=== PATIENT | female | born 1990 | race African-American/Black ===

== ENCOUNTER 2021-06-09 10:42 | Emergency (ER) | payer BC ==
[~2021-06-09] VITALS: Ht 160 cm; Wt 71.5 kg
[2021-06-09 11:15] VITALS: BP 132/76
[2021-06-09] MEDS ORDERED: LIDOCAINE 2% Multi-Dose 20 ML VIAL. IJ ONE (13:00)
--- NOTE | 2021-06-09 13:37 | ED.ADGEN ---
Past Medical History Past Surgical History: Other Additional Past Surgical Histo: LEFT MCL General Adult EDM: Chief Complaint: FINGER INJURY HPI: HPI: Patient is a 30 year old AA female who presents to the emergency department with complaints of swelling and pain in the distal end of her left middle finger. Patient states his symptoms began a couple days ago, she went to urgent care yesterday and was prescribed Keflex 3 times a day. Patient states she has been taking the Keflex as prescribed and some leftover naproxen from a previous visit. Patient states she is almost out of the naproxen. She denies any fever, body aches, numbness, tingling, or decreased sensation. Patient states that her finger feels full. She denies any drainage or bleeding from the site. She currently rates pain a 10 out of 10 on the pain scale, she denies any alleviating factors. Pain is worse if the area is touched. Review of Systems: Review of Systems: Complete ROS is negative unless otherwise noted in the HPI. Current Medications: Current Medications Medications (Trade) Dose Ordered Sig/Benny Start Time Stop Time Status Last Admin Dose Admin Lidocaine HCl (Lidocaine 2% 20ml Vial) 20 ml 1X ONCE 06/09/21 13:00 06/09/21 13:03 DC 06/09/21 13:02 20 ML Naproxen (Naprosyn) 500 mg STK-MED ONCE 06/09/21 13:53 06/09/21 13:53 DC Allergies: Allergies: Allergies Coded Allergies Type Severity Reaction Last Updated Verified No Known Drug Allergies 06/09/21 No Physical Exam: PE: See above Constitutional: Well developed, well nourished, no acute distress, non-toxic appearance. [] HENT: Normocephalic, atraumatic, bilateral external ears normal, nose normal. [] Eyes: PERRLA, EOMI, conjunctiva normal, no discharge. [] Neck: Normal range of motion, no stridor. [] Cardiovascular:Heart rate regular rhythm Lungs & Thorax: Respirations even and unlabored, no retractions, no respiratory distress Skin: Warm, dry; erythema and warmth to the medial distal left middle finger concerning for felon. Extremities: Left middle finger, no bony tenderness or deformity, no cyanosis, ROM intact, 1+ edema, sensation intact Neurologic: Alert and oriented X 3, no focal deficits noted. [] Psychologic: Affect normal, judgement normal, mood normal. [] Current Patient Data: Vital Signs: Vital Signs Date Time Temp Pulse Resp B/P (MAP) Pulse Ox O2 Delivery O2 Flow Rate FiO2 06/09/21 11:15 98.1 63 18 132/76 (94) 99 Room Air 98.1 EKG: EKG: [] Heart Score: C/O Chest Pain: No Radiology/Procedures: Radiology/Procedures: Indication: felon Procedure: The patient was positioned appropriately. Local anesthesia was 2% lidocaine. An incision was then made over the apex of the lesion and moderate amount of bloody pus was expressed. A nonstick dressing, Kerlix, and Coban was then applied to the site by myself. The patient tolerated the procedure well, minimal blood loss. Complications: none. Course & Med Decision Making: Course & Med Decision Making Pertinent Labs and Imaging studies reviewed. (See chart for details) 30-year-old female presented to emergency department with complaints of left middle finger pain and swelling physical exam is concerning for elizabeth, Dr. Viveros also evaluated the patient was in agreement with this assessment. Incision and drainage of the affected site as documented above. Patient was encouraged to continue taking the Keflex as prescribed. Recommended warm Epson salt soaks. Prescription for naproxen sent to the patient's pharmacy as requested. Follow- up with primary care doctor return to the ER in 48 hours for wound recheck, sooner if worsening signs or symptoms of infection such as fever, increased pain, or increased erythema. Patient verbalized an understanding of home care, medications, follow-up, and return to ED instructions and was in agreement with the plan of care. [] Dragon Disclaimer: Dragsteven Disclaimer: This electronic medical record was generated, in whole or in part, using a voice recognition dictation system. Departure Departure Impression: Primary Impression: Felon of finger of left hand Disposition: 01 HOME / SELF CARE / HOMELESS Condition: STABLE Patient Instructions: Paronychia, [id number] Additional Instructions: Continue taking the keflex as prescribed. Fill prescription(s) and use as directed. Soak the affected area in epsom salt soaks 3-4x/day and as needed for comfort. You may take tylenol or ibuprofen as needed for pain. Wound recheck in 48 hours. Follow up with your primary care doctor for wound recheck, return to the ER if your symptoms worsen or you develop a fever. Scripts Naproxen (NAPROXEN) 500 Mg Tablet 1 TAB PO BID PRN for PAIN for 10 Days, #20 TAB 0 Refills Prov: EDDIE GONZALEZ APRN 06/09/21 EDDIE GONZALEZ APRN Jun 09, 2021 13:37
[2021-06-09] MEDS ORDERED: NAPR-514 PO (13:46)
[2021-06-09] MEDS ORDERED: NAPROXEN 500 MG TABLET ONE (13:53)
== END 2021-06-09 13:56 | disposition home or self-care (01) ==
LOC: ER 10:42
DX: L03.012 Cellulitis of left finger (principal)
CPT/HCPCS: 26011; 99284

== ENCOUNTER 2021-06-12 13:45 | Emergency (ER) | payer BC ==
[~2021-06-12] VITALS: Ht 160 cm; Wt 69.5 kg
[~2021-06-12 13:45] MED LIST: NAPR-514 PO
[2021-06-12 13:51] VITALS: BP 158/88
[2021-06-12] MEDS ORDERED: MORPHINE SULFATE 2 MG/ML INJ. IVP ONE (14:15)
[2021-06-12] MEDS ORDERED: VANCOMYCIN PER PHARMACY MC ONE (14:15)
[2021-06-12] MEDS ORDERED: IV NORMAL SALINE 1000ML BAG 1,000 ML IV ONE ×2 (14:15)
[2021-06-12] MEDS ORDERED: PIPERACILLIN/TAZOBACTAM 4.5 GM in IV NORMAL SALINE 100ML 100 ML IV ONE (14:15)
[2021-06-12] MEDS ORDERED: VANCOMYCIN 1.75 GM in IV NORMAL SALINE 500ML BAG 500 ML IV ONE (14:30)
[2021-06-12] MEDS ORDERED: PIPERACILLIN/TAZOBACTAM 4.5 GM in IV DEXTROSE 5% 100ML 100 ML IV ONE (14:30)
--- NOTE | 2021-06-12 14:46 | RAD ---
XR FINGER(S)_LEFT 2+VIEWS_RT DATE: 06/12/2021 2:08 PM INDICATION: middle finger abscess COMPARISON: None. FINDINGS: Bones: There is no evidence of acute fracture or dislocation. No osseous erosions. Joints: The joint spaces are normal. Miscellaneous: None. IMPRESSION: No osseous erosions. Electronically signed by: Blaise Haskins MD (06/12/2021 2:44 PM) [id number]
[2021-06-12 15:00] LABS: BASO # 0.2 x10^3/uL (0.0-0.2); BASO % 3 % (0-3); EOS # 0.3 x10^3/uL (0.0-0.7); EOS % 5 % (0-3); HEMATOCRIT 41.2 % (36.0-47.0); HEMOGLOBIN 13.6 g/dL (12.0-15.5); LYMPH # 2.4 x10^3/uL (1.0-4.8); LYMPH % 38 % (24-48); MEAN CORPUSCULAR HEMOGLOBIN 31 pg (25-35); MEAN CORPUSCULAR HGB CONC 33 g/dL (31-37); MEAN CORPUSCULAR VOLUME 93 fL (79-100); MONO # 0.4 x10^3/uL (0.0-1.1); MONO % 7 % (0-9); NEUT # 3.1 x10^3/uL (1.8-7.7); NEUT % 48 % (31-73); PLATELET COUNT 330 x10^3/uL (140-400); RED BLOOD COUNT 4.43 x10^6/uL (3.50-5.40); RED CELL DISTRIBUTION WIDTH 13.7 % (11.5-14.5); WHITE BLOOD COUNT 6.4 x10^3/uL (4.0-11.0)
[2021-06-12 15:04] LABS: CALCIUM 8.9 mg/dL (8.5-10.1); CREATININE 0.9 mg/dL (0.6-1.0); GFR 87.8
[2021-06-12 15:13] LABS: ALBUMIN 4.1 g/dL (3.4-5.0); ALBUMIN/GLOBULIN RATIO 1.1 (1.0-1.7); TOTAL BILIRUBIN 0.1 mg/dL (0.2-1.0)
--- NOTE | 2021-06-12 16:59 | PHYS DOC ---
Past Medical History Past Surgical History: No Surgical History Additional Past Surgical Histo: LEFT MCL (CLARISA HINSON PEANUT SEPARATOR) Smoking Status: Never Smoker Alcohol Use: None (CLARISA HINSON APRN) General Adult EDM: Chief Complaint: FINGER INJURY HPI: HPI: Patient is a 30 year old right-handed female presented to the ED today complaining of left middle finger infection that began 10 days ago. Patient states she was seen at urgent care on June 04, 2021, was started on cephalexin which she states she took for 5 days. States the finger did not improve. She was seen in the ED 3 days ago and the finger was drained. She states she still has some drainage coming from it and feels its not improving. Patient denies any fever. (CLARISA HINSON APRN) Review of Systems: Review of Systems: Constitutional: Denies fever or chills. [] Musculoskeletal: Denies back pain or joint pain. [] Integument: Reports left middle finger infection Neurologic: Denies headache, focal weakness or sensory changes. [] Psychiatric: Denies depression or anxiety. [] (CLARISA HINSON PEANUT SEPARATOR) Heart Score: C/O Chest Pain: N/A Risk Factors: Risk Factors: DM, Current or recent (<one month) smoker, HTN, HLP, family history of CAD, obesity. Risk Scores: Score 0 - 3: 2.5% MACE over next 6 weeks - Discharge Home Score 4 - 6: 20.3% MACE over next 6 weeks - Admit for Clinical Observation Score 7 - 10: 72.7% MACE over next 6 weeks - Early Invasive Strategies (CLARISA HINSON PEANUT SEPARATOR) Current Medications: Current Medications Medications (Trade) Dose Ordered Sig/[facility] Start Time Stop Time Status Last Admin Dose Admin Morphine Sulfate (Morphine Sulfate) 2 mg 1X ONCE 06/12/21 14:15 06/12/21 14:16 DC 06/12/21 16:13 2 MG Piperacillin Sod/ Tazobactam Sod 4.5 gm/Dextrose 100 ml @ 200 mls/hr 1X ONCE 06/12/21 14:30 06/12/21 14:59 DC 06/12/21 14:30 200 MLS/HR Piperacillin Sod/ Tazobactam Sod 4.5 gm/Sodium Chloride 100 ml @ 200 mls/hr 1X ONCE 06/12/21 14:15 2/23/22 14:19 DC Sodium Chloride 1,000 ml @ 1,000 mls/hr 1X ONCE 06/12/21 14:15 06/12/21 15:14 DC Vancomycin HCl (Vanco Per Pharmacy) 1 each 1X ONCE 06/12/21 14:15 06/12/21 14:16 UNV Vancomycin HCl 1.75 gm/Sodium Chloride 500 ml @ 250 mls/hr 1X ONCE 06/12/21 14:30 06/12/21 16:29 DC 06/12/21 15:31 250 MLS/HR (CLARISA HINSON APRN) Allergies: Allergies: Allergies Coded Allergies Type Severity Reaction Last Updated Verified No Known Drug Allergies 06/12/21 No (CLARISA HINSON APRN) Physical Exam: PE: Constitutional: Well developed, well nourished, no acute distress, non-toxic appearance. [] [] Skin: Left middle finger distal end with small amount of soft tissue swelling consistent with a paronychia, there is an opening on the paronychia from an I&D that was done 3 days ago with drainage which patient expressed from the finger. There is artificial nail which I requested patient to remove when she gets home. Range of motion is intact including flexion and extension of the finger in all the joints. Sensation is intact to the finger. +2 left radial pulse. Cap refill less than 2 seconds to left fingers Back: No tenderness, no CVA tenderness. [] Extremities: No tenderness, no cyanosis, no clubbing, ROM intact, no edema. [] Neurologic: Alert and oriented X 3, normal motor function, normal sensory function, no focal deficits noted. [] Psychologic: Affect normal, judgement normal, mood normal. [] (CLARISA HINSON APRN) Current Patient Data: Labs: Laboratory Tests Test 06/12/21 14:40 06/12/21 15:00 White Blood Count 6.4 x10^3/uL (4.0-11.0) Red Blood Count 4.43 x10^6/uL (3.50-5.40) Hemoglobin 13.6 g/dL (12.0-15.5) Hematocrit 41.2 % (36.0-47.0) Mean Corpuscular Volume 93 fL (79-100) Mean Corpuscular Hemoglobin 31 pg (25-35) Mean Corpuscular Hemoglobin Concent 33 g/dL (31-37) Red Cell Distribution Width 13.7 % (11.5-14.5) Platelet Count 330 x10^3/uL (140-400) Neutrophils (%) (Auto) 48 % (31-73) Lymphocytes (%) (Auto) 38 % (24-48) Monocytes (%) (Auto) 7 % (0-9) Eosinophils (%) (Auto) 5 % (0-3) H Basophils (%) (Auto) 3 % (0-3) Neutrophils # (Auto) 3.1 x10^3/uL (1.8-7.7) Lymphocytes # (Auto) 2.4 x10^3/uL (1.0-4.8) Monocytes # (Auto) 0.4 x10^3/uL (0.0-1.1) Eosinophils # (Auto) 0.3 x10^3/uL (0.0-0.7) Basophils # (Auto) 0.2 x10^3/uL (0.0-0.2) Erythrocyte Sedimentation Rate 17 (0-25) Sodium Level 140 mmol/L (136-145) Potassium Level 4.0 mmol/L (3.5-5.1) Chloride Level 105 mmol/L (98-107) Carbon Dioxide Level 26 mmol/L (21-32) Anion Gap 9 (6-14) Blood Urea Nitrogen 11 mg/dL (7-20) Creatinine 0.9 mg/dL (0.6-1.0) Estimated GFR (Cockcroft-Gault) 87.8 BUN/Creatinine Ratio 12 (6-20) Glucose Level 92 mg/dL (70-99) Calcium Level 8.9 mg/dL (8.5-10.1) Total Bilirubin 0.1 mg/dL (0.2-1.0) L Aspartate Amino Transferase (AST) 13 U/L (15-37) L Alanine Aminotransferase (ALT) 18 U/L (14-59) Alkaline Phosphatase 56 U/L (46-116) C-Reactive Protein, Quantitative 1.4 mg/L (0-3.3) Total Protein 8.0 g/dL (6.4-8.2) Albumin 4.1 g/dL (3.4-5.0) Albumin/Globulin Ratio 1.1 (1.0-1.7) Procalcitonin < 0.10 ng/mL (0.00-0.10) Lactic Acid Level 0.8 mmol/L (0.4-2.0) Laboratory Tests 06/12/21 14:40 Laboratory Tests 06/12/21 14:40 Vital Signs: Vital Signs Date Time Temp Pulse Resp B/P (MAP) Pulse Ox O2 Delivery O2 Flow Rate FiO2 06/12/21 16:13 16 100 Room Air 06/12/21 13:51 98.3 91 158/88 (111) 98.3 (CLARISA HINSON APRN) EKG: EKG: [] (CLARISA HINSON APRN) Radiology/Procedures: Radiology/Procedures: []PROCEDURE: FINGER(S) LEFT XR FINGER(S)_LEFT 2+VIEWS_RT DATE: 06/12/2021 2:08 PM INDICATION: middle finger abscess COMPARISON: None. FINDINGS: Bones: There is no evidence of acute fracture or dislocation. No osseous erosions. Joints: The joint spaces are normal. Miscellaneous: None. IMPRESSION: No osseous erosions. Electronically signed by: Harsha Haskins MD (06/12/2021 2:44 PM) [id number] DICTATED and SIGNED BY: HARSHA HASKINS MD DATE: 06/12/21 [id number] 0 (CLARISA HINSON APRN) Course & Med Decision Making: Course & Med Decision Making Pertinent Labs and Imaging studies reviewed. (See chart for details) This a 30-year-old female patient presenting to the ED today with a paronychia on the left middle finger that she has had for 10 days. She was started on cephalexin on June 04, 2021 and she took it for 5 days with minimal improvement. She was seen in the ED 3 days ago and they drained the finger. She presents today stating its not improving. She is afebrile. CBC with a normal WBC, lactic is normal, sed rate is normal. Left middle finger x-rays are negative. Finger itself does not appear worse. Patient was given Zosyn IV in the ED and 1 dose of vancomycin. She was discharged on clindamycin and advised to follow-up with Ortho in the next 1 week Her tetanus is up-to-date (CLARISA HINSON APRN) Agata Disclaimer: Agaat Disclaimer: This electronic medical record was generated, in whole or in part, using a voice recognition dictation system. (CLARISA HINSON Linda SEARS) Departure Departure Impression: Primary Impression: Felon of finger of left hand Disposition: HOME / SELF CARE / HOMELESS Condition: STABLE Referrals: NO PCP (PCP) JAY PHAN MD follow up in 1-2 weeks Patient Instructions: Alfonzo, [id number] Additional Instructions: You were seen for finger infection. Please continue soaking it in warm water with Epsom salt 3 times a day. Please take the prescribed antibiotics until completed. Take the pain medicine as needed for pain. Follow-up with the provided Orthopedic doctor specialist in the next one week Scripts Hydrocodone Bit/Acetaminophen (HYDROCODONE-APAP 5-325 ) 1 Tab Tablet 1 TAB PO PRN Q6HRS PRN for PAIN, #10 TAB 0 Refills Prov: CLARISA HINSON APRN 06/12/21 Clindamycin Hcl (CLINDAMYCIN HCL) 150 Mg Capsule 3 CAP PO TID, #90 CAP Prov: CLARISA HINSON APRN 06/12/21 Attending Co-Sign The patient was seen and interviewed as well as examined at the bedside. The chart was reviewed. The case was discussed. Agree with the plan of care. (CAILIN MARTINEZ DO) CLARISA HINSON APRN Jun 12, 2021 16:59 CAILIN MARTINEZ DO Jun 12, 2021 17:46
[2021-06-12] MEDS ORDERED: CLIN150C16 PO (17:10)
[2021-06-12] MEDS ORDERED: HYDR-2761 PO (17:13)
== END 2021-06-12 17:39 | disposition home or self-care (01) ==
LOC: ER 13:45
DX: L03.012 Cellulitis of left finger (principal)
CPT/HCPCS: 36415; 73140; 80053; 83605; 84145; 85025; 85651; 86140; 87040; 96365; 96368; 96375; 99284; J2270; J2543; J3370; J7040; J7060